=== PATIENT | female | born 1950 ===

== ENCOUNTER → 2023-08-17 | Outpatient (CLI) | payer MEDICARE | LOC: LAB SHORT 14:53 → LAB 14:53 → PLD 14:53 | DX: D03.39 Melanoma in situ of other parts of face (principal) | CPT/HCPCS: 88341; 88342 ==

== ENCOUNTER → 2025-04-11 | Outpatient (CLI) | payer MEDICARE | LOC: LAB 13:51 → LAB SHORT 13:51 | DX: D48.5 Neoplasm of uncertain behavior of skin (principal) | CPT/HCPCS: 88342 ==

== ENCOUNTER → 2025-06-15 | Outpatient (CLI) | payer MEDICARE | LOC: LAB SHORT 09:21 → LAB 09:21 | DX: D03.39 Melanoma in situ of other parts of face (principal) | CPT/HCPCS: 88341; 88342 ==

== ENCOUNTER → 2025-07-12 | Outpatient (CLI) | payer MEDICARE | LOC: LAB 07:16 → LAB SHORT 07:16 → PLD 07:16 | DX: D03.39 Melanoma in situ of other parts of face (principal) | CPT/HCPCS: 88342 ==

== ENCOUNTER → 2025-07-19 | Outpatient (CLI) | payer MEDICARE | LOC: LAB SHORT 15:16 → LAB 15:16 | DX: D03.39 Melanoma in situ of other parts of face (principal) | CPT/HCPCS: 88342 ==